=== PATIENT | female | born 1980 | race Caucasian/White ===

== ENCOUNTER 2017-07-06 16:31 | Emergency (ER) | payer OTHER ==
[~2017-07-06] VITALS: Ht 167.6 cm; Wt 46.0 kg
[2017-07-06 17:32] LABS: ASPARTATE AMINO TRANSFERASE 50 U/L (15-37); BLOOD UREA NITROGEN 12 mg/dL (7-18)
[2017-07-06 17:33] LABS: HEMATOCRIT 35.7 % (34.6-47.8); HEMOGLOBIN 12.3 g/dL (11.7-16.4); WHITE BLOOD COUNT 2.7 x10^3/uL (3.4-10)
[2017-07-06 18:21] VITALS: BP 101/58
== END 2017-07-06 18:21 ==
LOC: EDBD 16:31 → ED 17:19
DX: R55 Syncope and collapse (principal); F50.00 Anorexia nervosa, unspecified; F90.9 Attention-deficit hyperactivity disorder, unspecified type
CPT/HCPCS: 36415; 80053; 85025; 93005; 99285